=== PATIENT | female | born 1990 | race Caucasian/White ===

== ENCOUNTER 2016-09-12 15:13 | Inpatient (IN) | payer MEDICAID, OTHER ==
[2016-09-12] MEDS ORDERED: CALNTAB (15:41)
[2016-09-12] MEDS ORDERED: LACTATED RINGER'S 1000 ML INJ 1,000 ML IV PRN (15:42)
[2016-09-12] MEDS ORDERED: [UNRECOGNIZED DRUG - CODE] (15:42)
[2016-09-12] MEDS ORDERED: LACTATED RINGER'S 1000 ML INJ 1,000 ML IV SCH ×2 (15:42→23:13)
--- NOTE | 2016-09-12 15:42 | HHI.HP ---
HPI Chief Complaint Planes of spontaneous ruptured membranes and labor Date Seen: Sep 12, 2016 Travel History International Travel<30 Days: No Contact w/Intl Traveler<30Days: No History of Present Illness HPI Is patient is 26-year-old white female at 38 weeks gestation presents in active labor 9 cm dilated. The patient is a patient of Dr. Calzada'marcus due to her drug history she is also incarcerated brought in by that the residential team. She is spontaneous ruptured membranes she presents now 9+ centimeters dilated. heart rate tracing is reactive contractions noted she is GBS negative, records are available. Para: 0 : 1 History Past Medical History Narrative Medical This patient's positive for hepatitis C in the past, she is an IV drug user has been using Dilaudid IV up through February of last year and she is taking Subutex now Social History Alcohol Use: Yes Tobacco Use: Yes Substance Abuse: Yes Allergies-Medications (Allergen,Severity, Reaction): Coded Allergies: Novocain (Verified Allergy, Severe, FACIAL EDEMA, 02/01/16) Latex (Verified Allergy, Mild, RASH, 02/01/16) Review of Systems General / Constitutional: No: Fever, Weight Gain, Chills, Other Eyes: No: Diploplia, Blurred Vision, Visual changes, Pain, Photophobia HENT: No: Headaches, Vertigo, Lightheadedness Cardiovascular: No: Irregular Rhythm, Chest Pain or Discomfort, Palpitations, Tachycardia, Syncope, Varicosities, Edema, Cyanosis Respiratory: No: Cough, Short of Breath, Other Gastrointestinal: No: Nausea, Vomiting, Diarrhea Genitourinary: No: Decreased Urinary Output, Oliguria Musculoskeletal: No: Limited ROM, Weakness, Cramping, Edema, Pain Skin: No Rash, No Itching, No Dryness, No Lumps, No Change in Pigmentation, No Change in Nails, No Alopecia, No Lesions Neurologic: No: Weakness, Dizziness, Syncope, Focal Abnormalities, Coordination Problem, Headache, Slurred Speech, Seizures Psychiatric: No: Depression, Suicidal Ideations, Homicidal Ideation Endocrine: No: Heat Intolerance, Cold Intolerance, Polydipsia, Polyuria, Other Physical Exam Narrative GENERAL: Well-nourished, well-developed patient.in distress SKIN: Warm and dry. HEAD: Normocephalic and atraumatic. EYES: No scleral icterus. No injection or drainage. ENT: No nasal drainage noted. Mucous membranes pink. Airway patent. NECK: Supple, trachea midline. No JVD. CARDIOVASCULAR: Regular rate and rhythm without murmurs, gallops, or rubs. RESPIRATORY: Breath sounds equal bilaterally. No accessory muscle use. BREASTS: Bilateral exam showed no masses , no retractions, no nipple discharge. ABDOMEN/GI: Abdomen soft, non-tender, bowel sounds present, no rebound, no guarding Gravid to [-38] weeks size Fundal Height: [-36 cm] GENITOURINARY: External Genitalia: intact and normal in appearance BUS glands: [-] ] Dilatation: [-9] Effacement: [100-] Station: [0-] Presentation: [vtx-] Membranes: ruptured] Uterine Contractions: [reg-] FHT's: Category: [-1] Baseline: [133-] Reactive: [-yes] Variability: [mod-] Decels: [none-] EXTREMITIES: No cyanosis or edema. BACK: Nontender without obvious deformity. No CVA tenderness. NEUROLOGICAL: Awake and alert. Motor and sensory grossly within normal limits. Five out of 5 muscle strength in all muscle groups. Normal speech. Data Data Orders Ob (2e) Additional Admit Info (09/12/16 15:33) Labs GBS neg Assessment/Plan Assessment and Plan This patient is a 26-year-old white female at 38 weeks presents presents in active labor 9 cm dilated with ruptured membranes outside hospital, she is a inhabitant of the residential male brought in by that team. She is seen Dr. Calzada for care due to her history of extensive IV drug use. heart tracings within normal limits contractions regular she'll be admitted for labor and anticipate vaginal delivery Ben Solares II, MD Sep 12, 2016 15:42
[2016-09-12] MEDS ORDERED: OXYTOCIN 30 UNITS-500ML PREMIX 500 ML ONE ×2 (15:43→19:23)
[2016-09-12] MEDS ORDERED: LIDOCAINE HCL 1% 50 ML VIAL INFIL PRN (15:45)
[2016-09-12] MEDS ORDERED: SODIUM CHLORID 0.9% 500 ML INJ 500 ML IV PRN (15:45)
[2016-09-12] MEDS ORDERED: LIDOCAINE HCL 1% 50 ML VIAL I-DERMAL PRN (15:45)
[2016-09-12] MEDS ORDERED: OXYTOCIN 30 UNITS-500ML PREMIX 500 ML IV ONE ×2 (15:45→18:15)
[2016-09-12] MEDS ORDERED: MINERAL OIL 10 ML VIAL TOPICAL PRN (15:45)
[2016-09-12] MEDS ORDERED: CITRIC ACID-SODIUM CITRATE LIQ 30 ML UDC PO SCH (15:45)
[2016-09-12 15:46] VITALS: BP 136/80; PULSE 108
[2016-09-12 16:00] VITALS: BP 121/85; PULSE 90
[2016-09-12] MEDS ORDERED: SODIUM CHLOR 0.9% 1000 ML INJ 1,000 ML IV PRN (16:02)
[2016-09-12 16:20] LABS: AUTOMATED NEUTROPHIL # 10.4 TH/MM3 (1.8-7.7); BASOPHIL % 0.2 % (0.0-2.0); EOSINOPHIL # 0.1 TH/MM3 (0-0.4); EOSINOPHIL % 0.5 % (0.0-4.0); HEMATOCRIT 33.7 % (35.0-46.0); HEMO FLAGS DIFF FINAL; LYMPH % 19.6 % (9.0-44.0); LYMPHOCYTE # 2.8 TH/MM3 (1.0-4.8); MEAN CELL VOLUME 90.1 FL (80.0-100.0); MEAN CORPUSCULAR HEMOGLOBIN 30.9 PG (27.0-34.0); MEAN CORPUSCULAR HGB CONC 34.3 % (32.0-36.0); MONO % 5.7 % (0.0-8.0); PLATELET COUNT 179 TH/MM3 (150-450); RED BLOOD COUNT 3.74 MIL/MM3 (4.00-5.30); RED CELL DISTRIBUTION WIDTH 14.1 % (11.6-17.2); WHITE BLOOD COUNT 14.1 TH/MM3 (4.0-11.0)
[2016-09-12] MEDS ORDERED: fentaNYL 2MCG-BUPIV 0.125% INJ 100 ML ONE (16:29)
[2016-09-12 16:41] LABS: BLOOD, URINE NEG (NEG); COMMENT (UR) CULT NOT INDICATED; CULTURE IF INDICATED CULT NOT INDICATED; GLUCOSE,URINE NEG (NEG); KETONE, URINE NEG (NEG); MUCUS URINE FEW /lpf (OCC); NITRITE,URINE NEG (NEG); SQUAMOUS EPITHELIAL CELL URINE 1 /hpf (0-5); URINE COLOR YELLOW (YELLW/STRAW)
[2016-09-12] MEDS ORDERED: TERBUTALINE INJ 1 MG/ML AMP ONE (17:12)
[2016-09-12] MEDS ORDERED: OXYTOCIN 10 UNIT/ML AMP ONE (17:28)
[2016-09-12] MEDS ORDERED: ceFAZolin INJ 1,000 MG VIAL ONE (17:28)
[2016-09-12] MEDS ORDERED: CARBOPROST TROMETHAMINE 250 MCG/ML VIAL ONE (17:39)
--- NOTE | 2016-09-12 18:12 | PD.OB.DELI ---
Procedure Note Section Procedure Pre Op Diagnosis: (1) Hep C w/o coma, chronic (2) IV drug abuse (3) Opioid abuse (4) Non-reassuring electronic monitoring tracing (5) Arrested labor Post Op Diagnosis: (1) Hep C w/o coma, chronic (2) IV drug abuse (3) Opioid abuse (4) Arrested labor (5) Non-reassuring electronic monitoring tracing (6) Cephalopelvic disproportion Performed by Marilyn London Procedure: Primary Low Transverse Sec Indication for delivery: Nonreassuring heart tracing, malposition ( ROT) Informed consent obtained: For anesthesia, For procedure Confirmed correct: Patient, Procedure Anesthesia: Epidural Medication prior to procedure: As documented in eMAR Monitoring during procedure: Blood pressure monitoring, Pulse oximetry Urinary catheter: ml urine output (100mol blood tinged prior to procedure) Sterile preparation: With 10% povidone iodine (Betadine), With drapes to expose affected area Position: Supine with safety belt applied Operative Features Skin Incision: Pfannenstiel Uterine Incision: Low transverse w/knife / blunt ext Membranes Ruptured: Previously, Appearance of fluid (cl) Presentation: Other (ROT) Delivery of infant: Uneventful Infant: Female One Minute : 8 Five Minute : 9 Weight: 2920g Status of infant: Viable, Cord blood, Umbilical cord, Nursery present Placenta delivered: Intact, Abnormalities (peripheral cord insertion) Medications: Antibiotics, Oxytocin, Prostaglandins Estimated blood loss: 500ml Procedure tolerated: Well Maternal Condition: Stable Baby Complications: Hypoxia Condition: Fair Procedure in detail see dictation Marilyn London MD Sep 12, 2016 18:12
[2016-09-12 18:14] LABS: BLOOD GAS BASE EXCESS -4.4 mmol/L (-2-2); BLOOD GAS O2 HGB SATURATION 9 % (90-100); CORD BLOOD GAS HCO3 23 mmol/L (21-29); CORD BLOOD GAS PCO2 65 mmHG (34-78); CORD BLOOD GAS PH 7.17 (7.14-7.42); CORD BLOOD GAS PO2 11 mmHG (3.0-40.0); DRAW SITE CORD BLOOD; STAT NO
[2016-09-12] MEDS ORDERED: SIMETHICONE 80 MG CHEWABLE TAB PO PRN (18:15)
[2016-09-12] MEDS ORDERED: ACETAMINOPHEN 1000 MG/100 ML VIAL IV ONE ×2 (18:15→18:46)
[2016-09-12] MEDS ORDERED: SODIUM CHLORIDE 0.9% FLUSH 5 ML FLUSH IV PRN (18:15)
[2016-09-12] MEDS ORDERED: ONDANSETRON HCL 4 MG/2 ML VIAL IV PUSH PRN (18:15)
[2016-09-12] MEDS ORDERED: DOCUSATE SODIUM 50 MG/SENNA 8.6 MG TAB PO PRN (18:15)
[2016-09-12] MEDS ORDERED: ACETAMINOPHEN 325 MG TAB PO PRN (18:15)
[2016-09-12] MEDS ORDERED: oxyCODONE/ACETAMINOPHEN 5 MG/325 MG TAB PO PRN (18:15)
[2016-09-12] MEDS ORDERED: MORPHINE SULFATE PF 5 MG/10 ML VIAL ONE (19:57)
[2016-09-12] MEDS ORDERED: SODIUM CHLORIDE 0.9% FLUSH 5 ML FLUSH IV SCH (21:00)
[2016-09-13] MEDS: IBUPROFEN 600 MG TAB PO PRN ×3 (02:05→16:06)
[2016-09-13] MEDS: oxyCODONE/ACETAMINOPHEN 5 MG/325 MG TAB PO PRN ×5 (02:05→18:26)
[2016-09-13 02:54] LABS: MRSA PCR NEGATIVE (NEGATIVE); STAPH AUREUS PCR NEGATIVE (NEGATIVE)
[2016-09-13] MEDS ORDERED: OXYTOCIN 30 UNITS-500ML PREMIX 500 ML IV PRN (04:15)
[2016-09-13 07:30] LABS: AUTOMATED NEUTROPHIL # 17.2 TH/MM3 (1.8-7.7); BASOPHIL % 0.1 % (0.0-2.0); HEMATOCRIT 29.3 % (35.0-46.0); HEMO FLAGS DIFF FINAL; LYMPH % 9.5 % (9.0-44.0); LYMPHOCYTE # 1.9 TH/MM3 (1.0-4.8); MEAN CELL VOLUME 90.6 FL (80.0-100.0); MEAN CORPUSCULAR HEMOGLOBIN 30.6 PG (27.0-34.0); MEAN CORPUSCULAR HGB CONC 33.7 % (32.0-36.0); MONO % 5.6 % (0.0-8.0); NEUT % 84.8 % (16.0-70.0); PLATELET COUNT 164 TH/MM3 (150-450); RED BLOOD COUNT 3.23 MIL/MM3 (4.00-5.30); RED CELL DISTRIBUTION WIDTH 14.3 % (11.6-17.2); WHITE BLOOD COUNT 20.2 TH/MM3 (4.0-11.0)
--- NOTE | 2016-09-13 10:46 | HHI.OB ---
Subjective Post Operative Day: 1 Remarks ambulating to bathroom, voiding, passing flatus, carter po pain well controlled on po meds Objective Vitals/I&O Vital Signs Date Time Temp Pulse Resp B/P Pulse Ox O2 Delivery O2 Flow Rate FiO2 09/12/16 16:00 90 121/85 09/12/16 15:46 108 136/80 Result Diagram: 09/13/16 0707 Objective Remarks GENERAL: Well-nourished, well-developed patient. CARDIOVASCULAR: Regular rate and rhythm without murmurs, gallops, or rubs. RESPIRATORY: Breath sounds equal bilaterally. No accessory muscle use. ABDOMEN/GI: Abdomen soft, non-tender, bowel sounds present. Incision: dressing Clean, dry and intact. Has momo Fundus: Firm, non-tender at umbilicus. GENITOURINARY: Light to moderate bleeding. EXTREMITIES: No cyanosis or edema, non-tender, without signs of DVT. Medications and IVs Current Medications Medications (Trade) Dose Ordered Sig/Erasmo Route Start Time Stop Time Status Last Admin (Lr 1000 ml Inj) 1,000 ml @ 100 mls/hr Q10H IV 09/12/16 23:13 09/13/16 19:12 09/13/16 00:37 (NS Flush) 2 ml BID IV 09/12/16 21:00 (NS Flush) 2 ml UNSCH PRN IV 09/12/16 18:15 (Mylicon Chew) 80 mg QID PRN PO 09/12/16 18:15 (Tylenol) 650 mg Q6H PRN PO 09/12/16 18:15 (Motrin) 600 mg Q6H PRN PO 09/12/16 18:15 09/13/16 09:01 (Percocet 5-325 Mg) 1 tab Q4H PRN PO 09/12/16 18:15 (Percocet 5-325 Mg) 2 tab Q4H PRN PO 09/12/16 18:15 09/13/16 10:18 (Mary-Colace) 2 tab Q12H PRN PO 09/12/16 18:15 (M-M-R Ii Inj) 0.5 ml ONCE ONCE SQ 09/13/16 16:00 09/13/16 16:01 (Boostrix Inj) 0.5 ml ONCE ONCE IM 09/13/16 16:00 09/13/16 16:01 (Zofran Inj) 4 mg Q6H PRN IV PUSH 09/12/16 18:15 Assessment/Plan Assessment and Plan This patient is a 26-year-old white female s/p stat CD nrfht, has inadequate pelvis POD 1- cont routine care. discussed reason for stat cd, intraop findings, pt in understanding HepC, h/o IVD, currently on subtex in long-term. Is a flight risk. Dispo to long-term on POD 3 Marilyn London MD Sep 13, 2016 10:46
[2016-09-13] MEDS ORDERED: DIPHTH/TETANUS/ACEL PERTUSSIS (BOOSTER) 0.5 ML VIAL/PFS IM ONE (16:00)
[2016-09-13] MEDS ORDERED: MEASLES, MUMPS, RUBELLA VACCINE 0.5 ML VIAL SQ ONE (16:00)
[2016-09-14] MEDS: oxyCODONE/ACETAMINOPHEN 5 MG/325 MG TAB PO PRN ×2 (08:19→14:59)
[2016-09-14] MEDS: IBUPROFEN 600 MG TAB PO PRN ×2 (08:19→14:58)
--- NOTE | 2016-09-14 09:09 | HHI.OB ---
Subjective Post Operative Day: 2 Remarks doing well, no significant c/o Objective Result Diagram: 09/13/16 0707 Objective Remarks GENERAL: Well-nourished, well-developed patient. CARDIOVASCULAR: Regular rate and rhythm without murmurs, gallops, or rubs. RESPIRATORY: Breath sounds equal bilaterally. No accessory muscle use. ABDOMEN/GI: Abdomen soft, non-tender, bowel sounds present. Incision: dressing Clean, dry and intact. Has momo Fundus: Firm, non-tender at umbilicus. GENITOURINARY: Light to moderate bleeding. EXTREMITIES: No cyanosis or edema, non-tender, without signs of DVT. Medications and IVs Current Medications Medications (Trade) Dose Ordered Sig/Erasmo Route Start Time Stop Time Status Last Admin (NS Flush) 2 ml BID IV 09/12/16 21:00 (NS Flush) 2 ml UNSCH PRN IV 09/12/16 18:15 (Mylicon Chew) 80 mg QID PRN PO 09/12/16 18:15 09/14/16 08:19 (Tylenol) 650 mg Q6H PRN PO 09/12/16 18:15 (Motrin) 600 mg Q6H PRN PO 09/12/16 18:15 09/14/16 08:19 (Percocet 5-325 Mg) 1 tab Q4H PRN PO 09/12/16 18:15 (Percocet 5-325 Mg) 2 tab Q4H PRN PO 09/12/16 18:15 09/14/16 08:19 (Mary-Colace) 2 tab Q12H PRN PO 09/12/16 18:15 (Zofran Inj) 4 mg Q6H PRN IV PUSH 09/12/16 18:15 Assessment/Plan Assessment and Plan This patient is a 26-year-old white female s/p stat CD nrfht, has inadequate pelvis POD 2- cont routine care. HepC, h/o IVD, currently on subtex in shelter. Is a flight risk. Dispo to shelter on POD 3 Discharge Planning Routine Attending Attestation seen by Tony Clark MD Sep 14, 2016 09:09
--- NOTE | 2016-09-14 09:11 | HHI.DS ---
Admission Date Sep 12, 2016 at 15:33 Admitting Diagnosis Diagnosis: : Female Brief History Is patient is 26-year-old white female at 38 weeks gestation presents in active labor 9 cm dilated. The patient is a patient of Dr. Mac due to her drug history she is also incarcerated brought in by that the [facility] team. She is spontaneous ruptured membranes she presents now 9+ centimeters dilated. heart rate tracing is reactive contractions noted she is GBS negative, records are available. Pt Condition on Discharge: Good Discharge Disposition: Dis to Court [employer] Enforcem Discharge Instructions Diet Instructions: As Tolerated, No Restrictions Activities You Can Perform: Shower Only-No Bath Activities to Avoid: Prolonged Standing, Strenuous Activity, Driving, Sexual Activity Tony Jung MD Sep 14, 2016 09:11
[2016-09-14] MEDS ORDERED: BUPR1SUB5 SL (12:35)
--- NOTE | 2016-09-14 12:40 | HHI.DCPOC ---
Discharge Care Plan Additional Problems Weaning from buprenorphine can be done at [facility] once approved by Dr. Livingston and Anuradha Chambers. At this time you (Lashae) are assuming you will be allowed to wean and then take baby to [facility]. I do not know if this has been arranged. Baby will be at NICU at [facility] for several days with KRYSTLE. You will need to return to my office this week to have momo removed and can discuss dispo then. Wed am or pm. Report Symptoms to Your Doctor -Temperate above 100.5 degrees -Redness, of incision or excessive or foul smelling drainage -Unusual pain or calf pain -Increased vaginal bleeding -Painful or difficulty urinating -Feelings of extreme sadness or anxiety after 2 weeks Goals to Promote Your Health * To prevent worsening of your condition and complications * To maintain your health at the optimal level Directions to Meet Your Goals Take your medications as prescribed Follow your dietary instruction Follow activity as directed Ensure plenty of rest for recovery Drink fluids for hydration Keep your appointments as scheduled Take your immunizations and boosters as scheduled If your symptoms worsen call your PCP, if no PCP go to Urgent Care Center or Emergency Room Smoking is Dangerous to Your Health. Avoid second hand smoke Call the 24-hour crisis hotline for domestic abuse at Paula Calzada MD Sep 14, 2016 12:40
[2016-09-14] MEDS ORDERED: IBUP800T23 PO (12:41)
--- NOTE | 2016-09-16 14:33 | MP ---
cc: JOHN LONDON MD DATE OF SURGERY 09/12/2016 PREOPERATIVE DIAGNOSIS 1. History of hepatitis C. 2. History of drug abuse. 3. Subutex use 4. Incarcerated 5. Non-reassuring heart tones POSTOPERATIVE DIAGNOSIS 1. History of hepatitis C. 2. History of drug abuse. 3. Subutex use 4. Incarcerated 5. Non-reassuring heart tones 6. Cephalopelvic disproportion PROCEDURE PERFORMED Primary low transverse section INDICATION The patient is a 26-year-old G1, P0 who presented at 38 weeks transferred from the hospital with complaints of strong contractions for the last two hours. She had rupture of membranes and was 9 cm dilated. She was able to get an epidural. She achieved maximal dilation of 9-10 cm and complete effacement, -1 station with caput and molding noted. She developed deceleration of heart tones to the 60s for approximately three minutes with what appeared to be returned to baseline, but this was obscured by the fact that the patient had tachycardia with the same heart rate as the fetus so coincidence could not be excluded. Discussed with the patient that her pelvis did not seem adequate and there was concern for possible heart rate deceleration, but we could not differentiate at the time. Discussed alternative to proceed with or to place a scalp electrode, but this was not recommended due to her hepatitis C status and risk of transmission. The patient agreed to proceed with primary delivery and surgery was performed in a stat fashion. SURGEON John London MD [employer] MACHINE OPERATOR [facility] staff ANESTHESIA Epidural ANTIBIOTICS Ancef 2 grams given IV pre incision. DVT prophylaxis, SCDs to bilateral lower extremities. COUNTS Sponge, lap, needle and instrument correct x3 ESTIMATED BLOOD LOSS 500 mL URINE OUTPUT 100 mL. Her urine was blood tinged prior to the procedure. IV FLUIDS One liter of LR SPECIMEN Cord blood, cord gases and placenta for pathology. INTRAOPERATIVE FINDINGS Viable female with 's of 8 and 9, weight 2920 grams, respiratory difficulty taken to the nursery. Maternal anatomy: uterus initially in a poor tone. She was given Hemabate intraoperatively in addition to Pitocin with good response, normal tubes and ovaries. PROCEDURE IN DETAIL After verbal consent, the patient was taken to the operating room for a stat . Her abdomen was prepped with iodine, a Fletcher had previously been in place and an epidural was previously in place and a sterile drape was applied. A scalpel was used to incise the skin in a Pfannenstiel incision. This was taken down to the fascia with the scalpel. The fascia was bluntly from the rectus muscles. The rectus muscles were bluntly in the midline. The peritoneum was entered bluntly. The bladder blade was inserted. A low uterine segment incision was made with a scalpel. This incision was extended bluntly. The head was noted to be low in the pelvis and ROT. The head was flexed and gently brought to the level of the hysterotomy. significant molding noted. The head was delivered without complication. Gentle fundal pressure was applied and the rest of body readily followed. The baby was suctioned. Cord was doubly clamped and cut. Baby was handed off to awaiting pediatricians. A segment of cord was doubly clamped and cut and submitted for cord gases and cord blood was collected. Gentle uterine massage and cord traction was used to delivered the placenta. The cord did avulse and seemed very weak. The leading edge of the placenta was grasped and uterine massage continued and the placenta easily delivered. Ring forceps were used to ensure all membranes were delivered. The uterus was exteriorized. A moist laparotomy sponge was used to clean the uterine cavity. #1 chromic in a running locked fashion followed by an imbricating layer was used to close the uterus in two layers. Poor tone was noted. Hemabate was given at this point and noted a good response. The posterior cul-de-sac was irrigated and suctioned. The uterus was returned to the abdomen. The anterior cul-de-sac was irrigated and suctioned. Good hemostasis was noted. The fascia was closed #1 Vicryl in a running fashion. Subcutaneous layer was suctioned and irrigated. Hemostasis was obtained with the Bovie. Skin was closed with momo. A pressure dressing was placed. Pt tolerated procedure well. John London MD PE/FRENCH /6:17 PM /2:21 PM JC
== END 2016-09-14 15:32 | DRG 765 ==
LOC: HOBED 15:13 → EEVIPCON 15:33 → H2EA 15:33 → H1EA 20:34
PROVIDERS: ADMIT Obstetrics & Gynecology; ATTEND Obstetrics & Gynecology
PROC: 10D00Z1 Extraction of Products of Conception, Low, Open Approach (ICD-10-PCS; principal; 2016-09-12)
DX: O76 Abnormality in fetal heart rate and rhythm complicating labor and delivery (principal); O98.42 Viral hepatitis complicating childbirth; O99.324 Drug use complicating childbirth; Z37.0 Single live birth; Z3A.38 38 weeks gestation of pregnancy; B18.2 Chronic viral hepatitis C; F11.10 Opioid abuse, uncomplicated; O33.9 Maternal care for disproportion, unspecified; O99.334 Smoking (tobacco) complicating childbirth; Z88.4 Allergy status to anesthetic agent; Z91.040 Latex allergy status
CPT/HCPCS: 59025; 81001; 82805; 84112; 85025; 86900; 86901; 87640; 87641; 88307; 99285; J0131; J0690; J2274; J2590; J3105; J7120